=== PATIENT | female | born 1990 | race African-American/Black ===

== ENCOUNTER 2021-04-25 13:32 | Emergency (ER) | payer OTHER, SELFPAY ==
[2021-04-25] MEDS ORDERED: Boostrix 0.5 ML (Tdap) VIAL ONE (13:44)
[2021-04-25] MEDS ORDERED: Bacitracin 1 PK ONE (13:47)
== END 2021-04-25 14:05 | disposition home or self-care (01) ==
LOC: NAV ERS 13:32
DX: S61.411A Laceration without foreign body of right hand, initial encounter (principal); E03.9 Hypothyroidism, unspecified; Z79.899 Other long term (current) drug therapy; W23.0XXA Caught, crushed, jammed, or pinched between moving objects, initial encounter
CPT/HCPCS: 90471; 90715